=== PATIENT | male | born 1965 | race African-American/Black ===

== ENCOUNTER 2018-03-04 11:29 | Emergency (ER) | payer BC, MEDICAID, OTHER ==
[~2018-03-04] VITALS: Ht 195.6 cm; Wt 117.9 kg
[~2018-03-04 11:29] MED LIST: PANT40TA2 PO
[2018-03-04 12:49] VITALS: BP 146/83
[2018-03-04] MEDS ORDERED: KETOROLAC TROMETH 60MG/2ML VIAL IM ONE (13:15)
== END 2018-03-04 13:35 | disposition home or self-care (01) ==
LOC: ER 11:29
DX: M25.512 Pain in left shoulder (principal)